=== PATIENT | male | born 1970 | race Caucasian/White ===

== ENCOUNTER → 2018-04-12 | Outpatient (CLI) | payer BC | LOC: GMAJ 14:41 | PROVIDERS: ATTEND Family Medicine | DX: Z00.00 Encounter for general adult medical examination without abnormal findings (principal) ==

== ENCOUNTER → 2019-04-08 | Outpatient (CLI) | payer OTHER | LOC: GMAJ 11:07 | PROVIDERS: ATTEND Family Medicine | DX: E29.9 Testicular dysfunction, unspecified (principal); Z79.899 Other long term (current) drug therapy ==

== ENCOUNTER 2019-05-17 05:40 | Day surgery (SDC) | payer OTHER ==
[2019-05-17] MEDS ORDERED: LIDOCAINE 1% 10 ML VIAL INJ ONE (07:00)
[2019-05-17] MEDS ORDERED: raNITIdine HCL INJ 25 MG/ML VIAL ONE (07:00)
[2019-05-17] MEDS ORDERED: METOCLOPRAMIDE HCL INJ 10 MG/2 ML VIAL ONE (07:00)
[2019-05-17] MEDS ORDERED: PROPOFOL 200 MG/20 ML VIAL IV ONE (07:00)
[2019-05-17] MEDS ORDERED: SODIUM CHLORIDE 0.9% 50 ML VIAL ONE (07:00)
[2019-05-17] MEDS ORDERED: ceFAZolin SODIUM 1 GM VIAL ONE (09:29)
[2019-05-17] MEDS ORDERED: SODIUM CHL 0.9% 100ML MINI-BAG 100 ML IVPB ONE (09:29)
[2019-05-17] MEDS ORDERED: LACTATED RINGERS 1,000 ML ONE (09:29)
[2019-05-17] MEDS ORDERED: HYDROmorphone HCL INJ 2 MG/ML VIAL ONE (11:15)
[2019-05-17] MEDS ORDERED: KETAMINE HCL 100 MG/ML VIAL ONE (11:15)
[2019-05-17] MEDS ORDERED: MIDAZOLAM INJ 5 MG/5 ML VIAL ONE (11:15)
[2019-05-17] MEDS ORDERED: BUPIVACAINE 0.5% W/EPI 30 ML VIAL INJ ONE (11:30)
[2019-05-17] MEDS ORDERED: BACITRACIN 0.9 GM UD PCKT ONE (12:14)
[2019-05-17 14:03] VITALS: BP 127/77; TEMP 97.3; O2SAT 100
--- NOTE | 2019-05-23 07:53 | OP ---
DATE OF PROCEDURE: 05/17/19 PREOPERATIVE DIAGNOSIS: 1. Left hip abscess. 2. Scrotal abscess. 3. Pustules on right inner thigh and scrotum, 4 and 4. POSTOPERATIVE DIAGNOSIS: 1. Left hip abscess. 2. Scrotal abscess. 3. Pustules on right inner thigh and scrotum, 4 and 4. PROCEDURE: 1. Sharp excisional debridement, skin and subcutaneous fatty tissue on left hip, 3 x 2 cm, approximately 2.5 cm deep. 2. Sharp excisional debridement of scrotum, skin and subcutaneous fatty tissue, 2 x 1 cm, 2 cm deep. 3. Incision and drainage of small abscesses x4 on the scrotum. 4. Incision and drainage of small abscesses x4 on right inner thigh. SURGEON: Naveen Argueta MD. ANESTHESIA: General and local. FINDINGS: As described. CONDITION: Stable. PLAN: Discharge. INDICATION: The patient presented to the outpatient clinical a couple of days ago with increased pain, pustules and erythema on the scrotum, left hip and right inner thigh. He thought it was from scratching scabies. He has been on antibiotics without improvement. It appeared that the skin on the scrotum was ischemic over the abscess that was mildly draining as well as the left hip and the other pustules appearance. We recommended going to surgery. DESCRIPTION OF PROCEDURE: The patient was brought to the Operative Suite and placed in supine position. General anesthesia was induced. He was prepped and draped in sterile fashion in lithotomy position. The left hip was done. This was a moderately large abscess, 4 by a few cm with surrounding erythema. An elliptical incision was made taking off the ischemic, yellow tissue as well as into the abscess cavity with significant amount of purulence. I then sharply debrided the subcutaneous fatty tissue to remove all affected tissue. There was good hemostasis. This was packed. The left side of the scrotal sac distally also had a similar lesion. Elliptical incision was made to remove the skin over it and debrided the underlying nonviable tissue to healthy appearing, bloody, fatty tissue in the scrotum without going too deep. There was no evidence of spread here. There were all small pustules. Four were expressed and lanced on the scrotum itself as well as approximately 4 on the right inner thigh. These were not as extensive and did not require sharp debridement. They were cut and drained. Local anesthesia was placed in these areas. Dressings were applied. He was awakened and to the Recovery Room in stable condition to be discharged. #[id number] [facility]
== END 2019-05-17 13:55 | disposition home or self-care (01) ==
LOC: AMB 05:40
PROVIDERS: ATTEND Surgery
DX: L02.416 Cutaneous abscess of left lower limb (principal); N49.2 Inflammatory disorders of scrotum; L08.9 Local infection of the skin and subcutaneous tissue, unspecified; F17.200 Nicotine dependence, unspecified, uncomplicated; Z88.5 Allergy status to narcotic agent; Z79.2 Long term (current) use of antibiotics
CPT/HCPCS: 00400; 10061; 11042; A4216; J0690; J1170; J2250; J2765; J2780; J3490; J7050; J7120

== ENCOUNTER 2020-05-05 18:10 | Inpatient (IN) | payer BC, OTHER ==
[2020-05-05] MEDS ORDERED: ONDANSETRON INJ 4 MG/2 ML VIAL IV ONE (19:07)
[2020-05-05] MEDS ORDERED: HYDROmorphone HCL INJ 2 MG/ML VIAL IV ONE (19:08)
--- NOTE | 2020-05-05 20:08 | CT ---
EXAM DESCRIPTION: Abdomen/Pelvis w/Contrast CLINICAL HISTORY: 49 years Male abdominal pain COMPARISON: None. TECHNIQUE: Contiguous axial images obtained through the abdomen and pelvis following IV contrast. Reformatted images obtained. This exam was performed according to our department optimization program which includes automated exposure control, adjustment of the mA and/or kv according to patient size and/or use of iterative reconstruction technique. FINDINGS: There is mild scarring/atelectasis in the lower lungs. The liver appears unremarkable. The spleen appears unremarkable. There is stranding in the fatty tissues around the pancreas most pronounced around the area of the pancreatic head. The findings are consistent with pancreatitis. No adrenal masses. The kidneys appear unremarkable. No hydronephrosis. There is a gallstone in the gallbladder measuring 2.1 cm in diameter. No aneurysmal dilatation of the aorta. No bowel obstruction. The appendix appears unremarkable. There is mild sigmoid diverticulosis. No significant free pelvic fluid. The prostate gland is slightly enlarged. Degenerative changes in the spine. IMPRESSION: There are inflammatory changes around the pancreas consistent with pancreatitis. There is a large gallstone in the gallbladder. Mild sigmoid diverticulosis. The prostate gland is slightly enlarged. Electronically signed by: Silviano Oerllana MD 05/05/2020 8:07 PM CDT
--- NOTE | 2020-05-05 20:45 | ED.PDOC ---
History of Present Illness - General Chief Complaint: Abdominal Pain Stated Complaint: Abdominal pain, nausea, vomiting Time Seen by Provider: 05/05/20 18:37 Information Source: patient Exam Limitations: no limitations - History of Present Illness Initial Comments: DIFFUSE, SEVERE ABD PAIN. 1 WK, INTERMITTENT, BUT TODAY CONSTANT. POS N/V. PT WRITHING IN PAIN. NO PMH. STILL HAS GB AND APPENDIX. NORCO ALLERGY (HIVES, NO ANAPHYLAXIS). NO KNOWN ALLERGY TO IV PAIN MEDS. Abdominal Pain Onset Location: periumbilical, generalized abdomen Pain Radiation: no radiation Quality: severe, sharpness Timing/Duration: 1 week, getting worse Improving Factors: nothing Worsening Factors: eating Associated Symptoms: nausea/vomiting Review of Systems - Review of Systems Constitutional: Denies: chills, fever EENTM: Denies: ear pain, nose pain Respiratory: Denies: cough, short of breath Cardiology: Denies: chest pain, palpitations Gastrointestinal/Abdominal: States: abdominal pain, nausea, vomiting. Denies: constipation, diarrhea Genitourinary: Denies: dysuria, hematuria Musculoskeletal: Denies: back pain, neck pain Skin: Denies: lesions, rash Neurological: Denies: headache, paresthesia Endocrine: Denies: unexplained weight gain, unexplained weight loss Hematologic/Lymphatic: Denies: easy bleeding, easy bruising All other Systems: Reviewed and Negative Past Medical History (General) - Patient Medical History Hx Seizures: No Hx Stroke: No Hx Dementia: No Hx Asthma: No Hx of COPD: No Hx Cardiac Disorders: No Hx Congestive Heart Failure: No Hx Pacemaker: No Hx Hypertension: No Hx Thyroid Disease: No Hx Diabetes: No Hx Gastroesophageal Reflux: No Hx Renal Disease: No Hx Cancer: No Hx of HIV: No Hx Hepatitis C: No Hx MRSA: No Surgical History: other - Vaccination History Hx Influenza Vaccination: Yes - Social History Hx Tobacco Use: Yes Hx Alcohol Use: Yes Family Medical History - Family History Mother Family History: Unknown Living Status: Unknown Physical Exam - Physical Exam General Appearance: Alert, Obvious distress Eyes, Ears, Nose, Throat Exam: PERRL/EOMI, normal ENT inspection Neck: supple, normal inspection Respiratory: lungs clear, normal breath sounds, no respiratory distress Cardiovascular/Chest: regular rate, rhythm, no murmur Peripheral Pulses: No deficit Gastrointestinal/Abdominal: normal bowel sounds, soft, no organomegaly, no pulsatile mass, tenderness - TTP X ALL 4 QUADRANTS BUT WORSE EPIGASTRIC. NO G/R. Rectal Exam: deferred Back Exam: normal inspection, no CVA tenderness Extremity: normal range of motion, normal inspection Neurologic: no motor/sensory deficits, alert, oriented x 3 Skin Exam: normal color, warm/dry Lymphatic: no adenopathy Progress - Progress Progress: 05/05/20 20:45 PT HAS ACUTE PANCREATITIS. HE WILL NEED INPT ADMISSION, NPO, IV PAIN CONTROL, IVF. I CALLED AND SPOKE WITH HOSPITALIST [employer], GWEN HUGO, WHO IS ADMITTING FOR FURTHER CARE. THANK YOU, [facility]. WBC 13.9 AND ELEV NEUTS. CMP ELEV BILI, AST, ALT. LIPASE ELEV AT 2168. CT ABD PELVIS = PANCREATITIS. 2.1 GALLSTONE IN GALLBLADDER (NOT CLEARLY OBSTRUCTING). LIKELY GALLSTONE PANCREATITIS. EKG NSR. UA = KETONES. NAUSEA AND PAIN CONTROLLED WITH ZOFRAN AND DILAUDID. BOLUS NS. - EKG/XRAY/CT CT Ordered: No Departure - Departure Clinical Impression: Neutrophilic leukocytosis, Bilirubinemia, Elevated LFTs, Ketonuria Acute pancreatitis Qualifiers: Pancreatitis type: unspecified pancreatitis type Acute pancreatitis complication: unspecified Qualified Code(s): K85.90 - Acute pancreatitis without necrosis or infection, unspecified Cholelithiases Qualifiers: Cholelithiasis location: gallbladder Cholecystitis presence: without cholecystitis Biliary obstruction: without biliary obstruction Qualified Code(s) : K80.20 - Calculus of gallbladder without cholecystitis without obstruction Disposition: Admit Patient Condition: Good Departure Forms: ED Discharge - Pt. Copy, Patient Portal Self Enrollment Diet: other - NPO Referrals: Naveen Childs MD [Primary Care Provider] - 1-2 Weeks Home Medications: Ambulatory Orders Aspirin [Aspirin Adult Low Dose] 81 mg PO DAILY 05/17/19 Citalopram Hydrobromide [Citalopram] 20 mg PO DAILY 05/17/19 Sulfamethoxazole-Trimethoprim [Bactrim 400-80 mg] 1 tab PO BID 05/17/19 Testosterone 200 mg IL ONCE 05/17/19 Decision To Admit - Decistion To Admit Decision to Admit Reason: Admit from ER Decision to Admit Date: 05/05/20 Decision to Admit Time: 21:13
[2020-05-05] MEDS ORDERED: SODIUM CHLORIDE 0.9% 1000ML 1,000 ML IVS ONE (20:58)
--- NOTE | 2020-05-05 21:27 | HP ---
SUPERVISING PHYSICIAN: Dariana Brody MD CHIEF COMPLAINT: Abdominal pain with nausea and vomiting. HISTORY OF PRESENT ILLNESS: This is a 49-year-old male patient that has had some epigastric abdominal pain that has been going on for about two weeks. He actually had a fairly severe case of abdominal pain about two weeks ago, but it went away, but over the last few days, it has progressively worsened. Today, it was actually constant. He did drink a few beers over the April weekend and today he ate a hamburger for lunch and shortly thereafter, the abdominal pain was so intense that he actually threw up x2 and it was constant and he could not relieve the pain with any medications. He tried some Pepto-Bismol and that actually made it worse, so he came to the Emergency Room. His initial vital signs were temperature 99.1, heart rate 60, blood pressure 126/99, respiratory rate 30, O2 saturation 99% on room air. His labs were done and WBCs were 13,900, hemoglobin 17.5, hematocrit 51. Neutrophils were 87%. Electrolytes were basically within normal limits. Total bilirubin was 1.5, AST 124, ALT 101, amylase 1,967, lipase 2,168. Urinalysis was unremarkable except for 15 urine ketones. Abdomen and pelvis CT shows inflammatory changes around the pancreas consistent with pancreatitis with a large gallstone in the gallbladder measuring 2.1 cm, mild sigmoid diverticulosis and prostate gland is slightly enlarged. He was given some fluids and pain medications as well as some Zofran and I was called for hospital admission. PAST MEDICAL HISTORY: 1. Stress induced anxiety. PAST SURGICAL HISTORY: 1. Right shoulder surgery. 2. Hernia repair. OUTPATIENT MEDICATIONS: Per the EMR and awaiting verification. ALLERGIES: HYDROCODONE. SOCIAL HISTORY: He is . He drinks beer socially. He denies any illicit drug use. He lives in [place]. REVIEW OF SYSTEMS: GENERAL: Negative for fever, fatigue or weight changes. HEENT: Negative for sinus symptoms, ear pain, vision changes or sore throat. RESPIRATORY: Negative for wheezing, coughing or shortness of breath. CARDIAC: Negative for chest pain, palpitations or tachycardia. GASTROINTESTINAL: Positive for epigastric abdominal pain as well as nausea and vomiting. Negative for diarrhea, constipation. GENITOURINARY: Negative for hematuria, dysuria or polyuria. MUSCULOSKELETAL: Negative for arthralgias, myalgias. SKIN: Negative for lesions or rashes. NEUROLOGIC: Negative for headache, paresthesias or seizures. PHYSICAL EXAMINATION: VITAL SIGNS: Heart rate 78, blood pressure 107/85, respiratory rate 20, O2 saturation 95% on room air. GENERAL: This is a 49-year-old male patient who is lying in his hospital bed. He is in no acute distress. HEENT: Normocephalic, atraumatic. Pupils are equal and reactive. Oropharynx is clear. NECK: Supple without mass. RESPIRATORY: Essentially clear to auscultation bilaterally. CARDIOVASCULAR: Regular rate and rhythm. GASTROINTESTINAL: Abdomen is soft. He is moderately tenderness in the epigastric area and right and left upper quadrants. There is no rebound tenderness or guarding. Bowel sounds are positive. BACK: Deferred. EXTREMITIES: No cyanosis, clubbing or edema. NEUROLOGIC: Awake, alert and oriented times three. Cranial nerves II-XII are grossly intact as tested. SKIN: Warm and dry. LABORATORY: Labs and films are as per history of present illness. IMPRESSION: 1. Biliary pancreatitis. 2. Cholelithiasis with a 2.1 cm nonobstructing gallstone. 3. Hyperbilirubinemia. 4. Stress induced anxiety. PLAN: The patient has been admitted to the hospital. He will be on bowel rest. I have ordered pain medications and IV fluids. I will check his labs in the morning including an amylase and lipase. I will also get an abdominal ultrasound in the morning. I will consult Dr. Zamudio, general surgeon. I have encouraged good pulmonary hygiene. I will not start him on any antibiotics for now as I will wait until I speak with Dr. Zamudio and follow his blood work tomorrow. He will be on Lovenox for DVT prophylaxis and a proton pump inhibitor for ulcer prophylaxis. We will continue to monitor the patient closely and follow as needed. [facility][id number] [facility]
[2020-05-05] MEDS ORDERED: SODIUM CHLORIDE 0.9% (FLUSH) 10 ML SYG IV PRN (22:11)
[2020-05-05] MEDS ORDERED: PROMETHAZINE HCL INJ 25 MG in SODIUM CHLORIDE 0.9% 50ML 50 ML IVPB PRN (22:14)
[2020-05-05] MEDS: HYDROmorphone HCL INJ 2 MG/ML VIAL IV PRN (23:02)
[2020-05-05] MEDS: KCL 20MEQ/D5NS 1,000 ML IVS PRN (23:15)
[2020-05-05] MEDS: IV SET AND CAP CHANGE INJ INJ SCH (23:15)
[2020-05-06] MEDS: PANTOPRAZOLE SODIUM IV 40 MG VIAL IV SCH (05:58)
[2020-05-06] MEDS: KCL 20MEQ/D5NS 1,000 ML IVS PRN ×3 (06:17→21:56)
[2020-05-06] MEDS: HYDROmorphone HCL INJ 2 MG/ML VIAL IV PRN ×3 (06:18→21:02)
--- NOTE | 2020-05-06 10:05 | US ---
EXAM DESCRIPTION: Abdomen,Complete: Ultrasound. CLINICAL HISTORY: 49 years Malebiliary pancreatitis COMPARISON: None Available. TECHNIQUE: Transabdominal scanning: grayscale and Doppler modes. FINDINGS: Gallbladder: Multiple echogenic stones in the gallbladder which is partially contracted. Largest stone measures 2.1 cm diameter. Sludge also present. 1.7 mm wall thickness with no fluid. Nontender with transducer pressure. Common bile duct: 6 mm borderline dilated. Liver: Diffuse echogenicity. Right lobe long axis XV.5 cm. No focal lesions. Normal caliber of intrahepatic ducts. Hepatopedal flow in the portal vein measuring 7.5 mm caliber at the anisa hepatis. Smooth capsule with no ascites. Pancreas: Normal size and echogenicity; duct not seen. Abdominal aorta: Normal caliber from the proximal segment to the distal bifurcation. IVC: visualized; normal caliber. Spleen normal echogenicity; long axis measurement is 12.3 cm. Right kidney: 11.1 cm long axis with normal cortical thickness and echogenicity. Volume 166.9 mL. No echogenic stones or hydronephrosis. Left kidney: 10.6 cm long axis with normal cortical thickness and echogenicity. Volume 135 mL. No echogenic stones or hydronephrosis. IMPRESSION: 1. Cholelithiasis of the gallbladder with largest stone measuring 2.2 cm. No wall thickening or fluid. Nontender with transducer pressure. Common bile duct borderline dilated. 2. Mild steatosis of the liver with normal size. Otherwise unremarkable. No ascites. Pancreas is negative. 3. Bilateral kidneys and spleen unremarkable. Normal caliber of the IVC and abdominal aorta. Electronically signed by: Fredo Rivers MD 05/06/2020 10:03 AM CDT
[2020-05-06] MEDS: ONDANSETRON INJ 4 MG/2 ML VIAL IV PRN ×2 (11:21→21:02)
[2020-05-06] MEDS: SODIUM CHLORIDE 0.9% (FLUSH) 10 ML SYG IV SCH ×2 (11:21→20:50)
[2020-05-06] MEDS ORDERED: NICOTINE PATCH 14 MG TD ONE (12:35)
[2020-05-06] MEDS: NICOTINE PATCH 14 MG TD SCH (13:38)
--- NOTE | 2020-05-06 13:49 | PN ---
SUPERVISING PHYSICIAN: Dariana Brody MD DATE: 05/06/20 SUBJECTIVE: The patient is lying in his bed. His is at bedside. He has much less pain today, but he continues to have abdominal pain. I explained to him that Dr. Argueta was consulted and he would be in to see him. He has no shortness of breath, nausea or vomiting. OBJECTIVE: VITAL SIGNS: Temperature 98.1, heart rate 63, blood pressure 125/75, respiratory rate 18, O2 saturation 94% on room air. RESPIRATORY: Essentially clear to auscultation bilaterally. CARDIAC: Regular rate and rhythm. GASTROINTESTINAL: Abdomen is soft, nondistended, but he is diffusely tender in the epigastric area. There is no rebound tenderness or guarding. NEUROLOGIC: Awake, alert and oriented times three. LABORATORY: WBC 13,700, hemoglobin 16.6, hematocrit 47.7. He does have a left shift on his differential. Electrolytes are basically within normal limits. Bilirubin is slightly improved to 1.3. Amylase 60, lipase 510. AST has gone down to 58 and ALT is 67. Preliminary blood cultures show no growth. Abdominal ultrasound shows 1) Cholelithiasis of the gallbladder with the largest stone measuring 2.2 cm, no wall thickening or fluid. Nontender transducer pressure. Common bile duct borderline dilated. 2) Mild steatosis of the liver with normal size, otherwise unremarkable. No ascites. Pancreas is negative. 3) Bilateral kidneys and spleen unremarkable. Normal caliber of the IVC and abdominal aorta. All other labs and films have been reviewed via the EMR. ASSESSMENT: 1. Biliary pancreatitis. 2. Cholelithiasis with a 2.2 cm nonobstructing gallstone. 3. Hyperbilirubinemia. 4. Stress induced anxiety. PLAN: We will continue present supportive care. Dr. Argueta will be consulting instead of Dr. Zamudio. I have ordered labs for in the morning including amylase and lipase. He has also had a nicotine patch ordered. I will talk to Dr. Argueta if he wants him to have Lovenox this evening. Otherwise, we will follow Dr. Argueta's recommendations. We will continue to monitor the patient closely and follow as needed. [facility][id number] [facility]
[2020-05-06] MEDS ORDERED: ENOXAPARIN SODIUM 40 MG/0.4 ML SYG SUBCU ONE (19:03)
[2020-05-06] MEDS: ENOXAPARIN SODIUM 40 MG/0.4 ML SYG SUBCU SCH (20:50)
[2020-05-06] MEDS ORDERED: HYDROmorphone HCL INJ 2 MG/ML VIAL ONE (21:00)
[2020-05-07] MEDS: HYDROmorphone HCL INJ 2 MG/ML VIAL IV PRN ×4 (01:07→20:10)
[2020-05-07] MEDS: KCL 20MEQ/D5NS 1,000 ML IVS PRN ×3 (05:44→22:31)
[2020-05-07] MEDS: PANTOPRAZOLE SODIUM IV 40 MG VIAL IV SCH (05:44)
[2020-05-07] MEDS: NICOTINE PATCH 14 MG TD SCH (08:34)
[2020-05-07] MEDS: ONDANSETRON INJ 4 MG/2 ML VIAL IV PRN (08:37)
[2020-05-07] MEDS: SODIUM CHLORIDE 0.9% (FLUSH) 10 ML SYG IV SCH ×2 (09:00→20:11)
[2020-05-07] MEDS ORDERED: KETOROLAC TROMETHAMINE INJ 30 MG/ML VIAL IV ONE (13:04)
--- NOTE | 2020-05-07 13:17 | PN ---
DATE: 05/07/20 SUBJECTIVE: The patient still has epigastric pain. No nausea or vomiting, no fevers or chills. OBJECTIVE: VITAL SIGNS: T-max 100. Heart rate 70s. Blood pressure normal. He has had adequate urine output. GENERAL: He is conscious, alert and well-oriented. No distress. CHEST: Clear and equal. HEART: Regular. ABDOMEN: Epigastric tenderness. No diffuse peritonitis. No skin color changes. LABORATORY: Today, white count 14, hematocrit 45, platelet count 186. BMP is normal. Total bilirubin 1.1, down from 1.5. AST and ALT are normal today. Amylase 238, continuing to come down from admission of 1900. Lipase is 104 from 2100. ASSESSMENT: Gallstone pancreatitis. PLAN: The patient still has pain, but his labs are improving consistent with passage of a stone. The plan is still for a laparoscopic cholecystectomy tomorrow. #[id number] [facility]
[2020-05-07] MEDS ORDERED: KETOROLAC TROMETHAMINE INJ 30 MG/ML VIAL ONE (13:31)
--- NOTE | 2020-05-07 16:18 | PN ---
SUPERVISING PHYSICIAN: Alberto Brody M.D. DATE: 05/07/20 SUBJECTIVE: The patient is still having some abdominal pain in both right upper quadrant and left upper quadrant, although he says he is a little bit better than yesterday. He has had a little bit of nausea but no vomiting. He does show a low-grade fever. OBJECTIVE: VITAL SIGNS: Temperature 100.0 with pulse of 76, blood pressure 141/70, respirations 18, satting 94% on room air. GENERAL: The patient is resting comfortably. Appears to be in a little bit of pain, otherwise he is not showing any acute distress. CHEST: Lung sounds are clear to auscultation, just a little diminished towards the bases. HEART: Regular rate and rhythm. ABDOMEN: Soft. Tenderness noted to the left and right upper quadrants with positive bowel sounds. EXTREMITIES: Without any edema. NEUROLOGIC: He is alert and oriented times three. LABORATORY: White count 14,800, hemoglobin 15.5, hematocrit 45.7, platelet count 186,000. Differential shows a left shift. Chemistries are normal electrolytes, creatinine 0.89. Amylase is down to 238, lipase down to 104. MICROBIOLOGY: Blood cultures remain negative. MRSA culture is pending. RADIOLOGY: No additional radiographic studies today. ASSESSMENT: 1. Biliary pancreatitis showing with pancreatic enzymes returning to baseline levels with surgical consultation pending. 2. Cholelithiasis resulting in #1 with surgical consultation pending. 3. Hyperbilirubinemia, resolving, secondary to #1. 4. Stress induced anxiety. PLAN: Dr. Argueta has seen the patient in consultation and the plan at this point, I think, is to take the patient to surgery tomorrow for a laparoscopic cholecystectomy. He is on Lovenox for DVT prophylaxis. He will be NPO tonight. I have discussed with Dr. Argueta trying some Toradol for pain management. Until we can transition him to outpatient management will continue to monitor and treat as needed. [facility][id number] [facility]
[2020-05-07] MEDS: KETOROLAC TROMETHAMINE INJ 30 MG/ML VIAL IV SCH (17:31)
[2020-05-07] MEDS: ENOXAPARIN SODIUM 40 MG/0.4 ML SYG SUBCU SCH (20:11)
[2020-05-08] MEDS: KETOROLAC TROMETHAMINE INJ 30 MG/ML VIAL IV SCH ×4 (00:11→16:55)
[2020-05-08] MEDS: KCL 20MEQ/D5NS 1,000 ML IVS PRN (05:33)
[2020-05-08] MEDS: PANTOPRAZOLE SODIUM IV 40 MG VIAL IV SCH (06:20)
--- NOTE | 2020-05-08 08:42 | CONS ---
DATE OF CONSULTATION: 05/06/20 REASON FOR CONSULTATION: Gallstone pancreatitis. HISTORY OF PRESENT ILLNESS: This is a 49-year-old man admitted last night with pancreatitis and evidence of gallstones. He was complaining of abdominal pain for about 2 weeks. It was very severe, but went away. Over the last few days, it has again become worse. It was aggravated by food. He drank some over the weekend, but he does not drink excessively per his history, nor from his describing his drinking. He did have nausea and vomiting. He has had no constipation, diarrhea, no fevers or chills, no history of similar symptoms. PAST MEDICAL HISTORY: 1. Anxiety. PAST SURGICAL HISTORY: 1. Shoulder surgery. 2. Hernia repair. ALLERGIES: HYDROCODONE. SOCIAL HISTORY: He again drinks socially. He denies any drug use or tobacco. REVIEW OF SYSTEMS: CONSTITUTIONAL: No fevers, no chills. HEENT: No headache, no visual changes, sore throat. RESPIRATORY: No cough or wheeze. CARDIOVASCULAR: No chest pain or palpitations. GASTROINTESTINAL: As above. GENITOURINARY: No complaints. PHYSICAL EXAMINATION: VITAL SIGNS: He has been afebrile. He is non-tachycardic. Heart rate in the 70s. Blood pressure 110/80s. Oxygen saturation 95% on room air. GENERAL: He is conscious, alert and well-oriented. No distress. HEENT: Sclerae anicteric. Oral mucosa is moist. NECK: Supple without adenopathy, jugular venous distention or thrombocytopenia. CHEST: Clear and equal bilaterally. HEART: Regular rate and rhythm without murmurs, rubs or gallops. ABDOMEN: Flat, soft. There is epigastric tenderness. There is no evidence of diffuse peritonitis. No skin color changes. No CVA tenderness. EXTREMITIES: No cyanosis, clubbing or edema. LABORATORY: White count 13, hematocrit 51, platelet count 273. BMP is normal. Bilirubin 1.5. AST and ALT are moderately elevated. Lipase 2160. Urinalysis with no evidence of acute infection. A CT was performed that shows the pancreatitis. No evidence of pseudocyst or bleeding. A large gallstone in the gallbladder. IMPRESSION: 1. Gallstone pancreatitis. PLAN: The patient will be treated conservatively at this point with management, NPO and observation. Most likely, this is gallstone and not alcohol. We will follow his labs and when he is improving significantly, proceed with laparoscopic cholecystectomy with cholangiogram. [facility][id number] [facility]
[2020-05-08] MEDS ORDERED: BUPIVACAINE 0.5% W/EPI 30 ML VIAL INJ ONE ×3 (09:05→10:51)
[2020-05-08] MEDS: HYDROmorphone HCL INJ 2 MG/ML VIAL IV PRN (09:28)
[2020-05-08] MEDS: NICOTINE PATCH 14 MG TD SCH (09:29)
[2020-05-08] MEDS: SODIUM CHLORIDE 0.9% (FLUSH) 10 ML SYG IV SCH ×2 (09:41→20:48)
[2020-05-08] MEDS ORDERED: DEXAMETHASONE INJ 10 MG/ML VIAL IV ONE (10:00)
[2020-05-08] MEDS ORDERED: ONDANSETRON INJ 4 MG/2 ML VIAL IV ONE ×2 (10:00→12:10)
[2020-05-08] MEDS ORDERED: LIDOCAINE 1% 10 ML VIAL INJ ONE (10:00)
[2020-05-08] MEDS ORDERED: NEOSTIGMINE METHYLSULFATE 1 MG/ML ML IV ONE ×2 (10:00→10:33)
[2020-05-08] MEDS ORDERED: PROPOFOL 200 MG/20 ML VIAL IV ONE (10:00)
[2020-05-08] MEDS ORDERED: GLYCOPYRROLATE 0.2 MG/ML VIAL IV ONE (10:00)
[2020-05-08] MEDS ORDERED: KETOROLAC TROMETHAMINE INJ 30 MG/ML VIAL IV ONE (10:00)
[2020-05-08] MEDS ORDERED: SODIUM CHLORIDE 0.9% 1000ML 1,000 ML ONE (10:05)
[2020-05-08] MEDS ORDERED: LACTATED RINGERS 1,000 ML ONE (10:27)
[2020-05-08] MEDS ORDERED: ROCURONIUM BROMIDE 10 MG/ML VIAL ONE (10:34)
[2020-05-08] MEDS ORDERED: MIDAZOLAM INJ 2 MG/2 ML VIAL ONE (10:34)
[2020-05-08] MEDS ORDERED: fentaNYL CITRATE INJ 50 MCG/ML AMP ONE (10:34)
[2020-05-08] MEDS ORDERED: LACTATED RINGERS 200 ML IVS ONE (12:00)
[2020-05-08] MEDS ORDERED: ONDANSETRON INJ 4 MG/2 ML VIAL ONE (12:10)
--- NOTE | 2020-05-08 13:03 | RAD ---
EXAM DESCRIPTION: Fluoroscopy Up to 1Hr CLINICAL HISTORY: 49 years Male, IOC TECHNIQUE: Intraoperative fluoroscopy was performed for intraoperative cholangiogram. FINDINGS: A total of 2 provided images demonstrate opacification of the biliary system extending into the second portion of the duodenum. Fluoroscopy time: 14.4 secs Dose: 3.56 mGy IMPRESSION: Intraoperative fluoroscopy was performed for intraoperative cholangiogram. Electronically signed by: Venus Dela Cruz MD 05/08/2020 1:01 PM CDT
--- NOTE | 2020-05-08 13:09 | OP ---
DATE OF PROCEDURE: 05/08/20 PREOPERATIVE DIAGNOSIS: 1. Gallstone pancreatitis. POSTOPERATIVE DIAGNOSIS: 1. Gallstone pancreatitis. PROCEDURE: 1. Laparoscopic cholecystectomy with intraoperative cholangiogram. SURGEON: Naveen Argueta MD. ANESTHESIA: General and local. FINDINGS: Acute cholecystitis. The anatomy was clearly visualized. The cholangiogram was normal without filling defect. COMPLICATIONS: None. ESTIMATED BLOOD LOSS: Minimal. SPECIMEN: Gallbladder. PLAN: Discharge. INDICATION: As stated. PROCEDURE: General anesthesia was induced. The patient was prepped and draped in sterile fashion. Marcaine 0.5% with epinephrine was used at all incision sites. While maintaining upward traction, a cut was made near the base of the umbilicus. Veress needle was introduced. There was free flow of fluid into the peritoneal cavity which was insufflated to an appropriate level with CO2 gas. The 5 mm trocar was placed followed by the camera. There was no evidence of bleeding or bowel injury. The patient was positioned and subxiphoid and lateral ports were placed under direct visualization without difficulty. The gallbladder fundus was easily identified. It was grasped and retracted superiorly and laterally. The infundibulum was grasped. The infundibular structures were dissected free. The duct and artery were clearly visualized through the triangle of Calot. A clip was placed on the proximal duct and ductotomy performed. The cholangiocatheter was introduced. The cholangiogram revealed the above normal findings. The catheter was removed. Three clips were placed on the distal duct. The duct was ligated and the artery triply ligated as was a small posterior branch. The gallbladder was then dissected off the fossa in total and removed through the subxiphoid incision. The fossa was examined. It remained hemostatic under low pressure. The subxiphoid fascia was then closed with 0 Vicryl using the suture passer. It was airtight and non- bleeding. The remaining trocars were removed. There was no bleeding from the trocar sites. The wounds were irrigated and closed with Monocryl. Dressings were applied. The patient was then taken to Recovery in stable condition to be admitted. [facility][id number] [facility]
[2020-05-08] MEDS ORDERED: traMADol HCL 50 MG TAB PO PRN (19:37)
[2020-05-08] MEDS ORDERED: TEMAZEPAM 15 MG CAP PO PRN (19:58)
[2020-05-08] MEDS: ENOXAPARIN SODIUM 40 MG/0.4 ML SYG SUBCU SCH (20:48)
[2020-05-08] MEDS ORDERED: MAGNESIUM HYDROXIDE 30 ML UD PO PRN (21:21)
[2020-05-08] MEDS: IV SET AND CAP CHANGE INJ INJ SCH (21:31)
--- NOTE | 2020-05-08 21:42 | PN ---
SUPERVISING PHYSICIAN: Alberto Brody M.D. DATE: 05/08/20 SUBJECTIVE: The patient was seen postoperatively after having a laparoscopic cholecystectomy. The patient was resting comfortably. Was feeling much better. Had no further complaints. OBJECTIVE: VITAL SIGNS: Temperature 98.9, pulse 67, blood pressure 104/88, respirations 16, satting 94% on room air. GENERAL: The patient is resting comfortably, visiting with his . CHEST: Clear to auscultation. HEART: Regular rate and rhythm. ABDOMEN: Soft, with just tenderness as expected per postoperative management. Steri-Strips remain in place. EXTREMITIES: Without any edema. NEUROLOGIC: He is alert and oriented times three. LABORATORY: White count is now down to 11,900. No left shift. Chemistries shows amylase and lipase are returning to baseline levels. Lipase is now normalized. Electrolytes were within normal limits. RADIOLOGY: No additional radiographic studies today other than intraoperative radiographic procedures. Please see his report for details. ASSESSMENT: 1. Status post laparoscopic cholecystectomy for acute biliary pancreatitis showing good response to treatment. 2. Cholelithiasis postoperative as noted in #1. 3. Hyperbilirubinemia, secondary to #1, resolved. 4. Stress induced anxiety. PLAN: After the patient has recovered today will advance his diet. He will be encouraged to ambulate. Will not anticipate his discharge tomorrow. I have him on Toradol every 6 hours 15 mg as he really did like that for pain control versus the Dilaudid. He is on DVT prophylaxis per protocol. Will defer further postoperative surgical management per Dr. Argueta. Until we can transition to outpatient management will continue to monitor and treat as needed. [facility][id number] [facility]
[2020-05-09] MEDS: KETOROLAC TROMETHAMINE INJ 30 MG/ML VIAL IV SCH ×2 (01:41→06:01)
[2020-05-09] MEDS: PANTOPRAZOLE SODIUM IV 40 MG VIAL IV SCH (05:56)
[2020-05-09 09:38] VITALS: BP 131/88; TEMP 97.6
[2020-05-09 09:50] VITALS: O2SAT 96
[2020-05-09] MEDS: SODIUM CHLORIDE 0.9% (FLUSH) 10 ML SYG IV SCH (10:22)
[2020-05-09] MEDS: NICOTINE PATCH 14 MG TD SCH (10:22)
--- NOTE | 2020-05-09 15:58 | DS ---
SUPERVISING PHYSICIAN: Alberto Brody M.D. ADMISSION DIAGNOSES: 1. Biliary pancreatitis. 2. Cholelithiasis with a 2.1 cm nonobstructing gallstone. 3. Hyperbilirubinemia. 4. Stress induced anxiety. DISCHARGE DIAGNOSIS: 1. Status post laparoscopic cholecystectomy for acute biliary pancreatitis showing good response to treatment. Postoperative day #[address] Naveen Argueta, general surgeon. 2. Cholelithiasis, status post cholecystectomy. 3. Hyperbilirubinemia, secondary to #1 that is now resolved. 4. Stress induced anxiety. HISTORY OF PRESENT ILLNESS: This is a 49-year-old male patient who presented to the Emergency Room due to some epigastric abdominal pain that had been going on for about two weeks. Approximately 2 weeks ago his abdominal pain was quite severe, but it went away. Over 2 to 3 days prior to him coming to the E. R., it had progressively worsened to the point that it was constant. Over the April, he did drink a few beers and the morning before he came to the E. R., he had a hamburger for lunch, and shortly thereafter the abdominal pain was so intense that he actually threw up x2. It was constant and he could not relieve the pain with any medications or positioning. He actually tried some Pepto-Bismol and that actually made it worse, so he came to the Emergency Room. His initial vital signs were temperature 99.1, heart rate 60, blood pressure 126/99, respiratory rate 30, O2 saturation 99% on room air. Labs were done and WBCs were 13,900, hemoglobin 17.5, hematocrit 51 and a left shift on his differential. Electrolytes were basically within normal limits. Total bilirubin was 1.5, AST 124, ALT 101, amylase 1,967, lipase 2,168. Urinalysis was unremarkable. Abdomen and pelvis CT shows inflammatory changes around the pancreas consistent with pancreatitis and a large gallstone in the gallbladder measuring 2.1 cm, mild sigmoid diverticulosis and prostate gland is slightly enlarged. He was given fluids and pain medications as well as some Zofran in the E. R. and I was called for hospital admission. HOSPITAL COURSE: The patient was admitted to the hospital in stable condition. He was placed on bowel rest as well as IV fluids and pain medications. He had serial labs ordered, including an amylase and lipase. An ultrasound was also ordered. Dr. Zamudio was initially consulted but he was going off call so Dr. Argueta saw the patient in consultation. Good pulmonary hygiene was encouraged. No antibiotics were started. He was placed on Lovenox for DVT prophylaxis and a proton pump inhibitor for ulcer prophylaxis. He improved quite a bit over the first [address] Argueta saw him in consultation and planned on taking him for surgery on Monday. He was initially treated conservatively as per Dr. Argueta's orders and planned for surgery as previously mentioned. Monday he was taken for surgery. He had no problems intraoperatively and was discharged to the Medical/Surgical floor overnight. He progressively felt better. His labs and vital signs stabilized. After surgery, he was placed on 15 mg of Toradol that controlled his pain much more than the Dilaudid. He was restarted on DVT prophylaxis. He was encouraged to get up and walk around. Today, the patient will be discharged home in stable condition. LABORATORY: WBCs started at 13,900 and went up to 14,800 and today are 12,900. His hemoglobin and hematocrit are stabilized today and are 15.2 and 44.6. Electrolytes are within normal limits. Bilirubin is down to 0.6 with liver function tests all within normal limits. Amylase was 62 and lipase was 35. Preliminary blood cultures show no growth after 3 days. Abdominal ultrasound showed: 1. Cholelithiasis with the gallbladder with large stone measuring 2.2 cm. No wall thickening or fluid. Non-tender with transducer pressure, common bile duct borderline dilated. 2. Mild steatosis of the liver with normal size. Otherwise unremarkable. No ascites. Pancreas is negative. 3. Bilateral kidneys and spleen unremarkable. Normal caliber of the IVC and abdominal aorta. DISCHARGE PLAN: The patient will be discharged home in stable condition. He is to resume a diet as tolerated and according to Dr. Argueta's instructions. He is to increase his activity as tolerated. He is to followup with Dr. Childs, his primary care physician, in 1 to 2 weeks as well as Dr. Argueta within the next 2 weeks. In addition to his routine medications, I have given him 30 Tramadol on discharge for pain. [facility] was consulted and there were no issues found. He is to return to the hospital or call Dr. Childs or Dr. Argueta's office for any problems or complications. DISCHARGE MEDICATIONS: 1. Citalopram. 2. Aspirin. 3. Testosterone. 4. Tramadol. [id number]
== END 2020-05-09 12:50 | disposition home or self-care (01) | DRG 419 ==
LOC: ER 18:10 → MS 21:27 → OBSVTOIN 21:27 → UNDOADMOB 21:27
PROVIDERS: ADMIT Nurse Practitioner Acute Care; ATTEND Nurse Practitioner Acute Care
PROC: BW211ZZ Computerized Tomography (CT Scan) of Abdomen and Pelvis using Low Osmolar Contrast (ICD-10-PCS; 2020-05-05)
PROC: BF131ZZ Fluoroscopy of Gallbladder and Bile Ducts using Low Osmolar Contrast (ICD-10-PCS; 2020-05-08)
PROC: 0FT44ZZ Resection of Gallbladder, Percutaneous Endoscopic Approach (ICD-10-PCS; principal; 2020-05-08 13:00)
DX: K85.10 Biliary acute pancreatitis without necrosis or infection (principal); F17.210 Nicotine dependence, cigarettes, uncomplicated; Z88.5 Allergy status to narcotic agent; F41.9 Anxiety disorder, unspecified; K76.0 Fatty (change of) liver, not elsewhere classified